=== PATIENT | female | born 1990 ===

== ENCOUNTER 2024-10-21 06:58 | Day surgery (SDC) | payer OTHER ==
[2024-10-21] MEDS ORDERED: HEMOSTATIC MATRIX 1 KIT KIT TOP ONE (10:18)
[2024-10-21] MEDS ORDERED: DIBUCAINE 30 GM TUBE ONE (10:18)
[2024-10-21] MEDS ORDERED: CEFTRIAXONE SODIUM 2,000 MG VIAL ONE (10:19)
[2024-10-21] MEDS ORDERED: METRONIDAZOLE/SODIUM CHLORIDE 500 MG/100 ML PIGGYBACK IV ONE (10:19)
[2024-10-21] MEDS ORDERED: BUPIVACAINE HCL/Mpf 0.5% 10ML VIAL ONE (10:19)
[2024-10-21] MEDS ORDERED: POVIDONE-IODINE 118 ML BOTT TOP ONE (10:19)
[2024-10-21] MEDS ORDERED: BUPIVACAINE LIPOSOME/PF 266 MG/20 ML VIAL IJ ONE (10:24)
== END 2024-10-21 18:10 | disposition home or self-care (01) ==
LOC: CIR.AMB 06:58
PROVIDERS: ATTEND Colon & Rectal Surgery
DX: K64.2 Third degree hemorrhoids (principal); K64.4 Residual hemorrhoidal skin tags; K92.2 Gastrointestinal hemorrhage, unspecified